=== PATIENT | female | born 1960 | race Hispanic/Latino ===

== ENCOUNTER 2018-06-15 15:51 | Outpatient (CLI) | payer MEDICARE, MEDICAID | END 2018-06-15 15:52 | disposition home or self-care (01) | LOC: BICMAMMO 15:51 | PROVIDERS: ATTEND Internal Medicine | DX: Z12.31 Encounter for screening mammogram for malignant neoplasm of breast (principal) | CPT/HCPCS: 77063; 77067 ==

== ENCOUNTER 2018-10-07 11:58 | Emergency (ER) | payer MEDICARE, MEDICAID ==
[2018-10-07] MEDS ORDERED: predniSONE 20 MG TAB ONE (12:37)
--- NOTE | 2018-10-07 13:56 | RAD ---
TWO VIEWS CHEST: DATE: 10/07/2018. PROVIDED CLINICAL HISTORY: Cough. FINDINGS: Cardiac and mediastinal silhouette is within normal limits. Lungs appear clear. No pleural fluid or pneumothorax apparent. IMPRESSION: No evidence for an acute cardiopulmonary process. POS: [facility]
== END 2018-10-07 13:25 | disposition home or self-care (01) ==
LOC: ERS 11:58
DX: J45.901 Unspecified asthma with (acute) exacerbation (principal); E11.9 Type 2 diabetes mellitus without complications; F41.9 Anxiety disorder, unspecified; F32.9 Major depressive disorder, single episode, unspecified; I10 Essential (primary) hypertension; Z86.73 Personal history of transient ischemic attack (TIA), and cerebral infarction without residual deficits; Z79.899 Other long term (current) drug therapy; Z79.84 Long term (current) use of oral hypoglycemic drugs
CPT/HCPCS: 71046; 94640; J7620

== ENCOUNTER 2019-01-07 12:13 | Outpatient (CLI) | payer MEDICARE, MEDICAID ==
--- NOTE | 2019-01-07 14:17 | RAD ---
EXAM: XR Barium Swallow Esophagus PROVIDED CLINICAL HISTORY: Dysphagia. Patient feels as if food gets stuck in upper cervical esophagus. COMPARISON: None FINDINGS: Document Control Supervisor image demonstrates postsurgical changes of the cervical spine related to anterior cervical fusi on with anterior plate and screws transfixing the C5-6 and C6-7 levels with intradiscal prostheses noted at these levels. Surgical clips overlie the right upper quadrant. Double contrast esophagram was performed in usual fashion. Esophagus demonstrates a normal appearance without evidence of a mucosal irregularity. There is mild decrease in primary esophageal peristalsis. Tertiary contractions are seen during the exam. There is no evidence of a hiatal hernia. Minimal gastroesophageal reflux was noted during the exam. A 12.5 mm barium tablet was administered with transient holdup at the level of the distal esophagus. IMPRESSION: 1. Tertiary contractions noted during the exam with minimal decrease in primary esophageal peristalsi s. 2. No evidence of a hiatal hernia. Mild gastroesophageal reflux is noted during the exam. 3. No mucosal irregularity is seen in the esophagus. 4. Transient holdup of the barium tablet in the distal esophagus.
== END 2019-01-07 12:14 | disposition home or self-care (01) ==
LOC: RAD 12:13
PROVIDERS: ATTEND Specialist
DX: R13.10 Dysphagia, unspecified (principal); K21.9 Gastro-esophageal reflux disease without esophagitis
CPT/HCPCS: 74220

== ENCOUNTER 2019-06-25 13:31 | Outpatient (CLI) | payer MEDICARE, MEDICAID ==
--- NOTE | 2019-06-25 14:24 | CT ---
CT LUMBAR SPINE WITHOUT CONTRAST: HISTORY: Acute low back pain. COMPARISON: None. FINDINGS: The visualized solid organs are grossly unremarkable. Surgically absent kidney. No retroperitoneal or paraspinal mass, lymphadenopathy or hematoma. Symmetric attenuation of the visu alized paraspinal muscles. Five lumbar type vertebrae. Lumbar spine vertebral body height is maintained. No fracture. No spondyl olisthesis. No spondylolysis. Limited evaluation of the contents of the central spinal canal and neural foramina due to technique. T12-L1: No significant central canal stenosis or significant neural foraminal narrowing. L1-L2: Broad-based disc bulge with a central/right subarticular disc protrusion. There may be some ma ss effect upon the traversing right L2 nerve root. Overall there is mild central canal stenosis. Bilaterally the neural foramina are patent. L2-L3: Broad-based disc bulge, minimal ligamentum flavum thickening and facet hypertrophy result in m ild central canal stenosis. Bilaterally the neural foramina are patent. L3-L4: Broad-based disc bulge, ligament flavum thickening and facet hypertrophy result in mild to mod erate central canal stenosis. Mild bilateral foraminal narrowing due to disc material. L4-L5: Broad-based disc bulge, ligamentum flavum thickening and facet hypertrophy result in moderate central canal stenosis. Right neural foramen is patent. Mild left foraminal narrowing predominantly due to disc material. L5-S1: Broad-based disc bulge does encroach upon both subarticular zones and make contact with the bi lateral traversing S1 nerve roots without significant obscuration. No significant stenosis of the thecal sac. Mild right neural foraminal narrowing. Moderate left foraminal narrowing due to disc mate rial and facet hypertrophy. There is vacuum joint phenomenon in both facet joints. IMPRESSION: Degenerative changes of the lumbar spine as above. Transcribed Date/Time: 06/25/2019 2:54 PM
== END 2019-06-25 13:32 | disposition home or self-care (01) ==
LOC: BICCT 13:31
PROVIDERS: ATTEND Neurological Surgery
DX: M54.5 Low back pain (principal); M54.12 Radiculopathy, cervical region; M47.816 Spondylosis without myelopathy or radiculopathy, lumbar region
CPT/HCPCS: 72131

== ENCOUNTER 2019-07-31 14:39 | Outpatient (CLI) | payer MEDICARE, MEDICAID ==
--- NOTE | 2019-07-31 16:08 | MRI ---
MRI cervical spine with and without contrast HISTORY: Cervical radiculopathy. Neck pain. COMPARISON: None TECHNIQUE: MRI cervical spine is performed without intravenous gadolinium administration and with int ravenous gadolinium administration. Multi sequential, multiplanar imaging was performed FINDINGS: Anterior fusion plate with transvertebral body screws and associated metallic susceptibly artifact fr om C5 through C7. Disc prosthesis at C5-C6 and C6-C7 Spondylolisthesis: C3-C4: 2.2 mm of anterolisthesis C4-C5: 1.3 mm of anterolisthesis Visualized brain parenchyma, cervicomedullary junction, cervical cord and the upper thoracic cord ar e normal size and signal intensity. Postcontrast images do not demonstrate any abnormal enhancement with regards to the visualized brain parenchyma and spinal cord. There is no abnormal enhancement of the vertebral bodies C2-C3: Broad-based discussed by complex. No significant central canal stenosis or significant neural foraminal narrowing C3-C4: Broad-based discussed by complex abuts the thecal sac. No significant central canal stenosis. Right neural foramen is patent. Severe left neural foraminal narrowing C4-C5: Broad-based discussed by complex effaces the subarachnoid space. Mild deformity the cervical c ord. No cord abnormality. Mild central canal stenosis. Mild to moderate right and left foraminal narrowing C5-C6: Broad-based osteophyte ridge. No significant central canal stenosis. Bilaterally, neural thien elisabeth. C6-C7: Broad-based osteophyte ridge abuts the thecal sac. Mild deformity the midline and right parace ntral cervical cord, without cord hyperintensity. Mild central canal stenosis. Bilaterally, neural foramina are patent C7-T1: No significant central canal stenosis. Bilaterally, neural foramina are patent IMPRESSION: 1. Cervical fusion from C5 through C7. Associated metallic susceptibility artifact. 2. Varying degrees of central canal stenosis and neural foraminal narrowing as detailed above 3. Spondylolisthesis as above. Transcribed Date/Time: 07/31/2019 4:22 PM
== END 2019-07-31 14:40 | disposition home or self-care (01) ==
LOC: TBSIIMAG 14:39
PROVIDERS: ATTEND Neurological Surgery
DX: M54.12 Radiculopathy, cervical region (principal); M43.12 Spondylolisthesis, cervical region; M48.02 Spinal stenosis, cervical region; Z98.1 Arthrodesis status
CPT/HCPCS: 72156

== ENCOUNTER 2019-08-29 18:03 | Emergency (ER) | payer MEDICARE, MEDICAID ==
[2019-08-29] MEDS ORDERED: Proparacaine 0.5% Opth 15 ML BOT ONE (19:14)
[2019-08-29] MEDS ORDERED: Fluorescein Opthalmic Strip ONE (19:14)
== END 2019-08-29 19:43 | disposition home or self-care (01) ==
LOC: ERS 18:03
DX: S05.02XA Injury of conjunctiva and corneal abrasion without foreign body, left eye, initial encounter (principal); S05.01XA Injury of conjunctiva and corneal abrasion without foreign body, right eye, initial encounter; Z86.73 Personal history of transient ischemic attack (TIA), and cerebral infarction without residual deficits; I49.9 Cardiac arrhythmia, unspecified; E11.9 Type 2 diabetes mellitus without complications; I10 Essential (primary) hypertension; F41.9 Anxiety disorder, unspecified; F32.9 Major depressive disorder, single episode, unspecified; W25.XXXA Contact with sharp glass, initial encounter
CPT/HCPCS: 99283

== ENCOUNTER 2024-09-12 11:29 | Emergency (ER) | payer OTHER, MEDICAID | END 2024-09-12 13:07 | disposition home or self-care (01) | LOC: ERS 11:29 | DX: J32.9 Chronic sinusitis, unspecified (principal); H10.9 Unspecified conjunctivitis; I10 Essential (primary) hypertension; E11.9 Type 2 diabetes mellitus without complications; Z86.73 Personal history of transient ischemic attack (TIA), and cerebral infarction without residual deficits | CPT/HCPCS: 71046; 87081; 87428; 87430 ==

== ENCOUNTER 2025-04-21 14:53 | Outpatient (CLI) | payer OTHER, MEDICAID | END 2025-04-21 14:54 | disposition home or self-care (01) | LOC: BICMAMMO 14:53 | PROVIDERS: ATTEND Family Medicine | DX: Z12.31 Encounter for screening mammogram for malignant neoplasm of breast (principal); Z80.3 Family history of malignant neoplasm of breast | CPT/HCPCS: 77063; 77067 ==